=== PATIENT | female | born 1955 | race Caucasian/White ===

== ENCOUNTER 2023-02-23 12:49 | Emergency (ER) | payer BC, OTHER ==
--- OUTSIDE RECORDS SUMMARY | 2023-02-23 12:52 | XMS REPORT | Continuity of Care Document ---
:1955 Author Organization [facility] Address [address] [address] Care Team Providers Name Role Phone Adamaris Nance Attending Clinician Edward Cuevas MD Attending Clinician Unknown, Attending Attending Clinician Unavailable Doctor Unassigned, [place] Attending Clinician Unavailable Payers Payer Name Policy Type Policy Number Effective Date Expiration Date S ource Problems Condition Condition Condition Status Onset Resolution Last Treating Co mments Source Name Details Category Date Date Treatment Clinician Date No known No known Disease Unive rs active active ity of problems problems [facility] Allergies, Adverse Reactions, Alerts This patient has no known allergies or adverse reactions. Social History Social Habit Start Date Stop Date Quantity Comments Source Alcohol intake [facility] Smoking Status Start Date Stop Date Source Never smoker [facility] Medications Ordered Filled Start Stop Current Ordering Indication Dosage Frequency Signature Comments Components Source Medication Medication Date Date Medication? Clinician (SIG) Name Name acetaminoph Yes [id number] 07/16 Univers en-codeine 9-14 tab Every ity of 300-30 mg 00:00: 4hrs as [place] tablet 00 needed for Medical pain or Branch cough requiring narcotic acetaminoph Yes [id number] 07/16 Univers en-codeine 9-14 tab Every ity of 300-30 mg 00:00: 4hrs as [place] tablet 00 needed for Medical pain or Branch cough requiring narcotic azithromyci Yes [id number] 250mg Take 1 Univers n 250 mg 4-13 tablet by ity of tablet 00:00: mouth [place] 00 SEE-INSTRU Medical CTIONS. Branch Take 500 mg day 1, then 250 mg days 2 to 5. dextrometho 2018- Yes [id number] 1{tbl} Take 1 Univers rphan-guaif 4-13 tablet by ity of enesin 00:00: mouth 2 [place] 30-600 mg 00 (two) Medical per tablet times Branch daily. azithromyci 2019-0 Yes [id number] 250mg Take 1 Univers n 250 mg 4-13 tablet by ity of tablet 00:00: mouth [place] 00 SEE-INSTRU Medical CTIONS. Branch Take 500 mg day 1, then 250 mg days 2 to 5. dextrometho 2018- Yes [id number] 1{tbl} Take 1 Univers rphan-guaif 4-13 tablet by ity of enesin 00:00: mouth 2 [place] 30-600 mg 00 (two) Medical per tablet times Branch daily. azithromyci Yes [id number] 250mg Take 1 Univers n 250 mg 4-13 tablet by ity of tablet 00:00: mouth [place] 00 SEE-INSTRU Medical CTIONS. Branch Take 500 mg day 1, then 250 mg days 2 to 5. dextrometho 2018- Yes [id number] 1{tbl} Take 1 Univers rphan-guaif 4-13 tablet by ity of enesin 00:00: mouth 2 [place] 30-600 mg 00 (two) Medical per tablet times Branch daily. Vital Signs Vital Name Observation Time Observation Value Comments Source Systolic blood 2019-03-28 21:04:00 157 mm[Hg] [facility] Diastolic blood 2019-03-28 21:04:00 84 mm[Hg] [facility] Heart rate 2019-03-28 21:03:00 118 /min [facility] acute hospital Body temperature 2019-03-28 21:03:00 36.5 Reema [facility] Respiratory rate 2019-03-28 21:03:00 17 /min [facility] Body height 2019-03-28 21:03:00 154.9 cm [facility] hospital Body weight 2019-03-28 21:03:00 62.687 kg [facility] hospital BMI 2019-03-28 21:03:00 26.11 kg/m2 [facility] acute hospital Oxygen saturation in 2019-03-28 21:03:00 98 /min [facility] Arterial blood by [facility] Pulse oximetry Branch Procedures Procedure Date / Time Performing Clinician Source Performed NO SHOW OR MISSED 2019-03-28 20:56:29 Doctor Unassigned, [facility] [place] ity of [place] APPOINTMENT POLICY [facility] h ACKNOWLEDGEMENT Encounters Start End Encounter Admission Attending Care Care Encounter Source Date/Time Date/Time Type Type Clinicians Facility Department ID 2019-03-29 2019-03-29 Telephone Abel [facility] [id number] Univers 00:00:00 00:00:00 [facility] [id number] it y of Surgical [id number] [place] as Specialti [phone] Wi dical es 370 [facility] 2019-03-28 2019-03-28 Urgent Edward Cuevas [facility] [id number] [facility] [place] 15:57:36 17:28:26 Care Unknown, Attending [facility] [id number] ity of Surgical [id number] Hum[facility] as Specialti [phone] Wi dical es 370 [facility] 2019-03-28 2019-03-28 Orders Doctor [place] [id number] Univers 00:00:00 00:00:00 Only Unassigned, [place] [id number] ity of Burn[place] [facility] [id number] Humza as [phone] [place] [address] Branch Results This patient has no known results.
[2023-02-23] MEDS ORDERED: NA CHLORIDE 0.9% 1,000 ML ONE (13:38)
[2023-02-23] MEDS ORDERED: dexAMETHasone 10 MG/ML VIAL ONE (13:38)
[2023-02-23 14:10] LABS: Absolute Lymphocytes (CBC) 0.7 K/uL (0.7-4.9); Hematocrit 34.3 % (36.0-45.0); Lymphocytes % 10.7 % (15.3-44.8); MCV 88.1 fL (80-100); MPV 8.1 fL (7.6-11.3); Platelets 267 thou/uL (152-406)
[2023-02-23 14:26] LABS: Potassium 3.8 mEq/L (3.5-5.1)
[2023-02-23 15:01] LABS: Blood Morphology Comment NOT SEEN (NOT SEEN); Platelet Estimate ADEQ
--- NOTE | 2023-02-23 15:29 | RAD REPORT ---
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 Multiplanar reformats were generated and reviewed. All CT scans are performed using dose optimization technique as appropriate and may include automated exposure control or mA/KV adjustment according to patient size. FINDINGS: Asymmetric enlargement of the right faucial tonsil. No intra or extra tonsillar abnormal f luid collections. No appreciable adjacent fat stranding although streak artifact resulting from denta l hardware limits evaluation. Fossa Rosenmller are normal. Parapharyngeal fat triangles are symmetric. Tongue base structures are normal. Epiglottis and aryepiglottic folds are normal. Piriform sinuses are well aerated. The vocal cords are normal in appearance. Prominent discrete right cervical lymph nodes, the largest at level 2A measuring 1.5 cm in short axis . Salivary glands are normal in appearance. Upper lung rowley are clear. Included intracranial contents are unremarkable. IMPRESSION: Asymmetric enlargement of the right faucial tonsil without appreciable fluid collections or fat stranding. Findings may be reactive or related to asymmetric tonsillitis. Streak artifact res ulting from dental hardware at that level limits evaluation. Prominent right cervical lymph nodes, likely reactive.
--- NOTE | 2023-02-23 15:40 | EDPHYS ---
Physician Documentation [facility] Name: Jose Luis Bull Age: 67 yrs Sex: Female : 1955 Arrival Date: 02/23/2023 Time: 12:49 Bed 18 Private MD: ED Physician Lincoln Briones HPI: 02/23 14:14 This 67 yrs old Female presents to ER via Ambulatory with complaints of Abcess tonsil. kb 14:14 The patient presents with sore throat. The patient describes throat pain as constant. kb Onset: The symptoms/episode began/occurred 1 week(s) ago. Severity of symptoms: At their worst the symptoms were moderate, in the emergency department the symptoms are unchanged. Modifying factors: The symptoms are alleviated by nothing, the symptoms are aggravated by swallowing. Associated signs and symptoms: Pertinent positives: Sore throat. The patient has not experienced similar symptoms in the past. The patient has been recently seen by a physician:. Pt reports sore throat for a week. 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 States swelling is worse. Historical: - Allergies: 13:05 No Known Allergies; hb - Home Meds: 13:05 None [Active]; hb - PMHx: 13:05 None; hb - PSHx: 13:05 None; hb - Immunization history:: Adult Immunizations up to date. - Social history:: Smoking status: Patient denies any tobacco usage or history of. ROS: 14:13 Constitutional: Negative for fever, chills, and weight loss. kb 14:13 ENT: Positive for sore throat. 14:13 All other systems are negative. Exam: 14:13 Constitutional: This is a well developed, well nourished patient who is awake, alert, kb and in no acute distress. Head/Face: Normocephalic, atraumatic. Cardiovascular: Regular rate and rhythm with a normal S1 and S2. No gallops, murmurs, or rubs. No pulse deficits. Respiratory: Respirations even and unlabored. No increased work of breathing. Talking in full sentences Skin: Warm, dry with normal turgor. Normal color. MS/ Extremity: Pulses equal, no cyanosis. Neurovascular intact. Full, normal range of motion. Neuro: Awake and alert, GCS 15, oriented to person, place, time, and situation. Moves all extremities. Normal gait. 14:13 ENT: Posterior pharynx: Airway: normal, no evidence of obstruction, Tonsils: enlarged on the right, with erythema, Uvula: normal, midline, swelling, that is moderate, erythema, that is moderate. Vital Signs: 13:02 BP 186 / 79; Pulse 106; Resp 16; Temp 98.1; Pulse Ox 97% on R/A; Weight 63.5 kg; Height hb 5 ft. 1 in. ; Pain 0/10; 14:00 BP 139 / 85; Pulse 92; Resp 18; Pulse Ox 99% on R/A; eh3 15:05 BP 153 / 75; Pulse 98; Resp 16; Temp 97.9; Pulse Ox 99% ; Pain 0/10; sm8 13:02 Body Mass Index 26.45 (63.50 kg, 154.94 cm) hb 13:02 Pain Scale: Adult hb 15:05 Pain Scale: Adult sm8 MDM: 13:02 Patient medically screened. kb 14:14 Data reviewed: vital signs, nurses notes. kb 14:16 Differential diagnosis: strep, mono, INSPECTION SUPERVISOR. Test considered but Not performed: Labs: strep considered, but pt had negative strep test on and on amoxicillin. Result would not change plan of care. 15:32 Counseling: I had a detailed discussion with the patient and/or guardian regarding: the kb historical points, exam findings, and any diagnostic results supporting the discharge/admit diagnosis, lab results, radiology results, the need for outpatient follow up, an ENT specialist, to return to the emergency department if symptoms worsen or persist or if there are any questions or concerns that arise at home. 02/23 13:08 Order name: CBC with Diff; Complete Time: 15:04 kb 02/23 13:08 Order name: Basic Metabolic Panel; Complete Time: 14:27 kb 02/23 13:08 Order name: [place] Screen Profile; Complete Time: 14:27 kb 02/23 14:15 Order name: Manual Differential; Complete Time: 15:04 EDMS 02/23 13:08 Order name: CT Soft Tissue Neck W/contr; Complete Time: 15:31 kb 02/23 13:08 Order name: IV Start; Complete Time: 13:38 kb Administered Medications: 13:30 Drug: NS 0.9% IV 1000 ml Route: IV; Rate: 1000 ml; Site: left antecubital; 3 14:30 Follow up: IV Status: Completed infusion; IV Intake: 1000ml 3 13:30 Drug: Decadron - Dexamethasone IVP 10 mg Route: IVP; Site: left antecubital; 3 14:00 Follow up: Response: No adverse reaction 3 Disposition: 16:51 Co-signature as Attending Physician, Lincoln Briones MD I agree with the assessment and kdr plan of care. Disposition Summary: 02/23/23 15:39 Discharge Ordered Location: Home kb Condition: Stable kb Diagnosis - Acute tonsillitis, unspecified kb Followup: kb - With: - When: 2 - 3 days - Reason: Recheck today's complaints Followup: kb - With: Emergency Department - When: As needed - Reason: Worsening of condition Followup: kb - With: Private Physician - When: 2 - 3 days - Reason: Recheck today's complaints, Continuance of care, Re-evaluation by your physician Discharge Instructions: - Discharge Summary Sheet kb - Tonsillitis, [id number] kb Forms: - Medication Reconciliation Form kb - Thank You Letter kb - Antibiotic Education kb - Prescription Opioid Use kb - Patient Portal Instructions kb - Leadership Thank You Letter kb Prescriptions: - Augmentin 875-125 mg Oral Tablet - take 1 tablet by ORAL route every 12 hours for 10 days; 20 tablet; Refills: 0, kb Product Selection Permitted Signatures: Dispatcher [employer] Diandra Joy, GEOMETRY TUTOR-C GEOMETRY TUTOR-Lincoln Baker MD MD kdr Baxter, Heather, RN RN Marycarmen Florence RN RN 3
--- NOTE | 2023-02-23 15:40 | ER ---
Nurse's Notes [facility] Name: Jose Luis Bull Age: 67 yrs Sex: Female : 1955 Arrival Date: 02/23/2023 Time: 12:49 Bed 18 Private MD: Diagnosis: Acute tonsillitis, unspecified Presentation: 02/23 13:02 Chief complaint: Seen at urgent care for sore throat, on Amoxicillin day 3 for hb peritonsillar abscess, c/o worsening swelling and difficulty swallowing today. Coronavirus screen: At this time, the client does not indicate any symptoms associated with coronavirus-19. Ebola Screen: No symptoms or risks identified at this time. Initial Sepsis Screen: Does the patient meet any 2 criteria? HR > 90 bpm. No. Patient's initial sepsis screen is negative. Does the patient have a suspected source of infection? No. Patient's initial sepsis screen is negative. Risk Assessment: Do you want to hurt yourself or someone else? Patient reports no desire to harm self or others. Onset of symptoms was February 21, 2023. 13:02 Method Of Arrival: Ambulatory 13:02 Acuity: DARIELA 3 hb Triage Assessment: 13:05 General: Appears in no apparent distress. Behavior is calm, cooperative. Pain: Denies hb pain. EENT: Reports difficulty swallowing. Neuro: Level of Consciousness is awake, alert, obeys commands, Oriented to person, place, time, situation. Cardiovascular: Patient's skin is warm and dry. Respiratory: Respiratory effort is even, unlabored, Respiratory pattern is regular, symmetrical. GI: No signs and/or symptoms were reported involving the gastrointestinal system. : No signs and/or symptoms were reported regarding the genitourinary system. Derm: Skin is pink, warm \T\ dry. Musculoskeletal: No signs and/or symptoms reported regarding the musculoskeletal system. Historical: - Allergies: 13:05 No Known Allergies; hb - Home Meds: 13:05 None [Active]; hb - PMHx: 13:05 None; hb - PSHx: 13:05 None; hb - Immunization history:: Adult Immunizations up to date. - Social history:: Smoking status: Patient denies any tobacco usage or history of. Screenin:05 [facility] ED Fall Risk Assessment (Adult) Score/Fall Risk Level 0 - 2 = Low Risk hb Oriented to surroundings, Maintained a safe environment. Abuse screen: Denies threats or abuse. Denies injuries from another. Nutritional screening: No deficits noted. Tuberculosis screening: No symptoms or risk factors identified. Assessment: 13:05 General: Appears in no apparent distress. uncomfortable, Behavior is calm, cooperative, eh3 appropriate for age. Pain: Complains of pain in throat. Neuro: Level of Consciousness is awake, alert, obeys commands, Oriented to person, place, time, situation. Cardiovascular: Capillary refill < 3 seconds Patient's skin is warm and dry. Respiratory: Airway is patent Respiratory effort is even, unlabored, Respiratory pattern is regular, symmetrical. GI: Abdomen is round non-distended. Derm: Skin is pink, warm \T\ dry. Musculoskeletal: Circulation, motion, and sensation intact. 14:00 Reassessment: Patient appears in no apparent distress at this time. Patient and/or 3 family updated on plan of care and expected duration. Pain level reassessed. Patient is alert, oriented x 3, equal unlabored respirations, skin warm/dry/pink. 15:00 Reassessment: Patient appears in no apparent distress at this time. Patient and/or eh3 family updated on plan of care and expected duration. Pain level reassessed. Patient is alert, oriented x 3, equal unlabored respirations, skin warm/dry/pink. Vital Signs: 13:02 BP 186 / 79; Pulse 106; Resp 16; Temp 98.1; Pulse Ox 97% on R/A; Weight 63.5 kg; Height hb 5 ft. 1 in. ; Pain 0/10; 14:00 BP 139 / 85; Pulse 92; Resp 18; Pulse Ox 99% on R/A; eh3 15:05 BP 153 / 75; Pulse 98; Resp 16; Temp 97.9; Pulse Ox 99% ; Pain 0/10; sm8 13:02 Body Mass Index 26.45 (63.50 kg, 154.94 cm) hb 13:02 Pain Scale: Adult hb 15:05 Pain Scale: Adult 8 ED Course: 12:53 Patient arrived in ED. ts1 13:02 Di[facility]enson [facility]C [facility] kb 13:02 Lincoln Briones MD is Attending Physician. kb 13:05 Triage completed. hb 13:05 Marycarmen Florence, RN is Primary Nurse. 3 13:05 Arm band placed on. 13:05 Patient has correct armband on for positive identification. Bed in low position. 13:05 Provided Education on: Use of call dinh. Pulse ox on. NIBP on. eh3 14:10 Missed attempt(s): 20 gauge Bleeding controlled, band aid applied, catheter tip intact. sm8 14:10 Inserted saline lock: 20 gauge in left antecubital area, using aseptic technique. Blood sm8 collected. 14:41 CT Soft Tissue Neck W/contr In Process Unspecified. EDCA 15:39 Inez Hopson MD is Referral Physician. kb 15:51 No provider procedures requiring assistance completed. Patient did not have IV access eh3 during this emergency room visit. Administered Medications: 13:30 Drug: NS 0.9% IV 1000 ml Route: IV; Rate: 1000 ml; Site: left antecubital; eh3 14:30 Follow up: IV Status: Completed infusion; IV Intake: 1000ml 3 13:30 Drug: Decadron - Dexamethasone IVP 10 mg Route: IVP; Site: left antecubital; eh3 14:00 Follow up: Response: No adverse reaction eh3 Medication: 15:51 VIS not applicable for this client. eh3 Intake: 14:30 IV: 1000ml; Total: 1000ml. 3 Outcome: 15:39 Discharge ordered by MD. kb 16:00 Discharged to home ambulatory, with family. eh3 16:00 Condition: stable 16:00 Discharge instructions given to patient, Instructed on discharge instructions, follow up and referral plans. medication usage, Demonstrated understanding of instructions, follow-up care, medications, Prescriptions given X 1. 16:00 Patient left the ED. eh3 Signatures: Dispatcher [employer] EDCA Diandra Henson, ESTIMATOR LUMBER-C ESTIMATOR LUMBER-Ckb Natalie Mejia RN RN Marycarmen Florence, WYATT SCHNEIDER 3 Brigette Junior PAS PAS ts1 Mills, Scarlett sm8 Corrections: (The following items were deleted from the chart) 14:10 14:10 Missed attempt(s): 18 gauge in left Bleeding controlled, band aid applied, sm8 catheter tip intact. sm8
[2023-02-23 16:23] VITALS: O2SAT 99
[2023-02-23 16:25] VITALS: BP 153/75; TEMP 97.9
== END 2023-02-23 16:00 | disposition home or self-care (01) ==
LOC: ER 12:49
DX: J03.90 Acute tonsillitis, unspecified (principal)
CPT/HCPCS: 96361; 85025; 80048; 36415; 86308; 70491; 96374; 99284; Q9967; J1100; J7030

== ENCOUNTER 2023-06-20 23:03 | Emergency (ER) | payer OTHER ==
--- OUTSIDE RECORDS SUMMARY | 2023-06-20 23:07 | XMS REPORT | Continuity of Care Document ---
Author Name Unknown Address [address] [place] [address] thconnect Address 1200 [facility] 1 495 [place] [address] Care Team Providers [employer] Name Role Phone Adamaris Nance Attending Clinician [phone] Edward Cuevas MD Attending Clinician [phone] Unknown, Attending Attending Clinician Unavailab le Doctor Unassigned, [place] Attending Clinician U navailable Payers Payer Name Policy Type Policy Number Effective Date Expirati on Date Source Problems Condition Name Condition Details Condition Category Status Onset Date Resolution Date Last Treatment Date Treating Clinician Comments Source No known active problems No known active problems Disease [facility] Social History Social Habit Start Date Stop Date Quantity Comments Source Alcohol intake [facility] Sex Assigned At [facility] Smoking Status Start Date Stop Date Source Never smoker [facility] Medications Ordered Medication Name Filled Medication Name Start Date Stop Date Current Medication? Ordering Clinician Indication Dosage Frequency Signature (SIG) Comments Components Source acetaminoph en-codeine 300-30 mg tablet 03-28 00:00: 00 Yes [id number] 1/2 - 1 tab Every 4hrs as needed for pain or cough requiring narcotic [facility] acetaminoph en-codeine 300-30 mg tablet 03-28 00:00: 00 Yes [id number] 1/2 - 1 tab Every 4hrs as needed for pain or cough requiring narcotic [facility] azithromyci n 250 mg tablet 10-25 00:00: 00 Yes [id number] 250mg Take 1 tablet by mouth SEE-INSTRU CTIONS. Take 500 mg day 1, then 250 mg days 2 to 5. [facility] dextrometho rphan-guaif enesin 30-600 mg per tablet 10-25 00:00: 00 Yes [id number] 1{tbl} Take 1 tablet by mouth 2 (two) times daily. [facility] azithromyci n 250 mg tablet 10-25 00:00: 00 Yes [id number] 250mg Take 1 tablet by mouth SEE-INSTRU CTIONS. Take 500 mg day 1, then 250 mg days 2 to 5. [facility] dextrometho rphan-guaif enesin 30-600 mg per tablet 10-25 00:00: 00 Yes [id number] 1{tbl} Take 1 tablet by mouth 2 (two) times daily. [facility] azithromyci n 250 mg tablet 10-25 00:00: 00 Yes [id number] 250mg Take 1 tablet by mouth SEE-INSTRU CTIONS. Take 500 mg day 1, then 250 mg days 2 to 5. [facility] dextrometho rphan-guaif enesin 30-600 mg per tablet 10-25 00:00: 00 Yes [id number] 1{tbl} Take 1 tablet by mouth 2 (two) times daily. [facility] Vital Signs Vital Name Observation Time Observation Value Comments S ource Systolic blood pressure 2019-03-28 21:04:00 157 mm[Hg] [facility] Diastolic blood pressure 2019-03-28 21:04:00 84 mm[Hg] [facility] Heart rate 2019-03-28 21:03:00 118 /min [facility] Body temperature 2019-03-28 21:03:00 36.5 Reema [facility] Respiratory rate 2019-03-28 21:03:00 17 /min [facility] Body height 2019-03-28 21:03:00 154.9 cm [facility] Body weight 2019-03-28 21:03:00 62.687 kg [facility] BMI 2019-03-28 21:03:00 26.11 kg/m2 [facility] Oxygen saturation in Arterial blood by Pulse oximetry 2019-03-28 21:03:00 98 /min [facility] Branch Procedures Procedure Date / Time Performed Performing Clinician Source NO SHOW OR MISSED APPOINTMENT POLICY ACKNOWLEDGEMENT 2019-03-28 20:56:29 Doctor Unassigned, [place] [facility] Encounters Start Date/Time End Date/Time Encounter Type Admission Type Attending Clinicians Care Facility Care Department Encounter ID Source 2019-03-29 00:00:00 2019-03-29 00:00:00 Telephone Adamaris Roman [facility] Specialclarissa [facility] [id number] [facility] 2019-03-28 15:57:36 2019-03-28 17:28:26 Urgent Care Edward Cuevas, Attending [facility] Specialclar[facility] [id number] [facility] 2019-03-28 00:00:00 2019-03-28 00:00:00 Orders Only Doctor Unassigned, [place] [facility] [id number] [facility]
[2023-06-21] MEDS ORDERED: NA CHLORIDE 0.9% 1,000 ML ONE (00:18)
[2023-06-21] MEDS ORDERED: MORPHINE 2 MG/ML SYR ONE (00:18)
[2023-06-21] MEDS ORDERED: ONDANSETRON 4 MG/2 ML VIAL ONE (00:21)
[2023-06-21 00:51] LABS: Absolute Lymphocytes (CBC) 1.1 K/uL (0.7-4.9); Hematocrit 34.3 % (36.0-45.0); Lymphocytes % 17.6 % (15.3-44.8); MCV 86.4 fL (80-100); Platelets 123 thou/uL (152-406); RBC Red Blood Cell Count 3.97 M/uL (3.86-4.86)
[2023-06-21 01:09] LABS: Specific Gravity 1.021 (1.005-1.030); Urine Bacteria None Seen /HPF (<20); Urine Bilirubin NEGATIVE (Negative); Urine Blood Trace (Negative); Urine Clarity Turbid (Clear); Urine Color Yellow (Yellow); Urine Glucose NEGATIVE (Negative); Urine Mucus Slight /HPF (None Seen); Urine Protein NEGATIVE (Negative); Urine RBC None Seen /HPF (None Seen); Urine Urobilinogen Normal (Normal)
[2023-06-21 01:40] LABS: Albumin 3.4 g/dL (3.4-5.0); Bilirubin Total 0.3 mg/dL (0.2-1.0); Potassium 2.9 mEq/L (3.5-5.1); Protein, Total 6.8 g/dL (6.4-8.2)
[2023-06-21 01:49] LABS: Blood Morphology Comment NOT SEEN (NOT SEEN); Platelet Estimate ADEQ
--- NOTE | 2023-06-21 03:17 | EDPHYS ---
Physician Documentation [facility] [place] Name: Jose Luis Bull Age: 67 yrs Sex: Female : 1955 Arrival Date: 06/20/2023 Time: 23:03 Bed 15 Private MD: Ap Meyers HPI: 06/20 23:20 This 67 yrs old Female presents to ER via Ambulatory with complaints of Abdominal Pain, cp patient has not had a bm since 06-10 . patient had chemo that day. 23:20 The patient presents with abdominal pain that is diffuse, constipation. Onset: The cp symptoms/episode began/occurred 1 week(s) ago. The symptoms do not radiate. Associated signs and symptoms: Pertinent positives: chest pain, diarrhea, Pertinent negatives: fever, nausea, vomiting. 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 - Social history:: Smoking status: Patient denies any tobacco usage or history of. ROS: 23:25 Constitutional: Negative for body aches, chills, fever, poor PO intake, cp 23:25 Cardiovascular: Negative for chest pain, edema, palpitations, cp 23:25 Respiratory: Negative for cough, shortness of breath, wheezing, 23:25 Abdomen/GI: Positive for abdominal pain, constipation, Negative for vomiting, diarrhea, anorexia, 23:25 Eyes: Negative for injury, pain, redness, and discharge, cp 23:25 ENT: Negative for drainage from ear(s), ear pain, sore throat, difficulty swallowing, cp difficulty handling secretions, 23:25 Back: Negative for radiated pain, 23:25 Neuro: Negative for altered mental status, dizziness, headache, weakness, 23:25 All other systems are negative, Exam: 23:30 Constitutional: The patient appears in no acute distress, alert, awake, cp non-diaphoretic, non-toxic, well developed, well nourished, uncomfortable, 23:30 Head/Face: Normocephalic, atraumatic. cp 23:30 Eyes: Periorbital structures: appear normal, Conjunctiva: normal, no exudate, no injection, Sclera: no appreciated abnormality, Lids and lashes: appear normal, bilaterally, 23:30 ENT: External ear(s): are unremarkable, Nose: is normal, Mouth: Lips: moist, Oral mucosa: pink and intact, moist, Posterior pharynx: Airway: no evidence of obstruction, patent, 23:30 Chest/axilla: Inspection: normal, 23:30 Cardiovascular: Rate: tachycardic, Rhythm: regular, Edema: is not appreciated, JVD: is not appreciated, 23:30 Respiratory: the patient does not display signs of respiratory distress, Respirations: normal, no use of accessory muscles, no retractions, labored breathing, is not present, Breath sounds: are clear throughout, no decreased breath sounds, no stridor, no wheezing, 23:30 Abdomen/GI: Inspection: distension, that is mild, Bowel sounds: active, all quadrants, Palpation: soft, in all quadrants, mild abdominal tenderness, in all quadrants, rebound tenderness, is not appreciated, involuntary guarding, is not appreciated, 23:30 Back: pain, is absent, 23:30 Neuro: Orientation: to person, place \T\ time. Mentation: is normal, Cerebellar function: is grossly normal, Motor: moves all fours, strength is normal, Sensation: is normal, 06/21 03:26 ECG was reviewed by the Attending Physician. cp Vital Signs: 06/20 23:13 BP 170 / 84; Pulse 120; Resp 18 S; Temp 97.3(TE); Pulse Ox 100% on R/A; Weight 57.15 kg as6 (R); Height 5 ft. 1 in. (R); Pain 10/10; 23:34 BP 160 / 76; Pulse 96; Resp 18; Pulse Ox 100% on R/A; km8 06/21 00:00 BP 136 / 63; Pulse 89; Resp 16; Pulse Ox 100% on R/A; 8 00:30 BP 147 / 70; Pulse 80; Resp 16; Pulse Ox 100% on R/A; km8 01:00 BP 156 / 69; Pulse 88; Resp 16; Pulse Ox 100% on R/A; km8 01:30 BP 140 / 76; Pulse 84; Resp 16; Pulse Ox 100% on R/A; km8 02:00 BP 139 / 65; Pulse 86; Resp 16; Pulse Ox 95% on R/A; km8 03:00 BP 143 / 72; Pulse 84; Resp 16; Pulse Ox 100% on R/A; km8 06/20 23:13 Body Mass Index 23.81 (57.15 kg, 154.94 cm) as6 06/20 23:13 Pain Scale: Adult as6 [place]day Coma Score: 06/20 23:31 Eye Response: spontaneous(4). Motor Response: obeys commands(6). Verbal Response: km8 oriented(5). Total: 15. MDM: 23:17 Patient medically screened. casey 06/21 03:15 Data reviewed: vital signs, nurses notes, lab test result(s), radiologic studies, CT cp scan. 03:15 Differential diagnosis: non-specific abd pain, urinary tract infection, bowel cp obstruction. I considered the following discharge prescriptions or medication management in the emergency department Medications were administered in the Emergency Department. See MAR. Counseling: I had a detailed discussion with the patient and/or guardian regarding the historical points, exam findings, and any diagnostic results supporting the discharge/admit diagnosis, lab results, radiology results, to return to the emergency department if symptoms worsen or persist or if there are any questions or concerns that arise at home. Response to treatment: the patient's symptoms have mildly improved after treatment, and as a result, I will discharge patient. Special discussion: Based on the patient's Hx, exam, and Dx evaluation, there is no indication for emergent surgery or inpatient Tx. It is understood by the patient/guardian that if the Sx's persist or worsen they need to return immediately for re-evaluation. 06/21 00:00 Order name: CBC with Diff; Complete Time: 02:09 cp 06/21 02:10 Interpretation: Normal except: HGB 11.8; HCT 34.3; PLT 123. cp 06/21 00:00 Order name: CMP; Complete Time: 02:09 cp 06/21 02:15 Interpretation: Normal except: NA 134; K 2.9; GLUC 113; BUN 24; GFR 67; ALT 101; A/G cp 1.0. 06/21 00:00 Order name: Lipase; Complete Time: 02:09 cp 06/21 00:00 Order name: Urinalysis w/ reflexes; Complete Time: 02:09 cp 06/21 02:21 Interpretation: Normal except: UCLA Turbid; UKET TRACE; UBLD Trace; UESTR 25. cp 06/21 01:01 Order name: Manual Differential; Complete Time: 02:09 EDMS 06/21 02:24 Interpretation: Normal except: SEGS 23; BANDS [F] 46. cp 06/21 00:00 Order name: CT Abd/Pelvis - IV Contrast Only cp 06/21 00:00 Order name: IV Saline Lock; Complete Time: 00:21 cp 06/21 00:00 Order name: Labs collected and sent; Complete Time: 00:21 cp 06/21 03:07 Order name: EKG - Nurse/Tech; Complete Time: 03:33 cp EC:26 Rate is 82 beats/min. Rhythm is regular. TN interval is normal. QRS interval is normal. cp QT interval is normal. Interpreted by me. Reviewed by me. Administered Medications: 00:21 Drug: NS 0.9% IV 1000 ml IV at 1000 calculated rate Per protocol; 500 cc bolus then 125 km8 mL/hr Route: IV; Rate: 1000 calculated rate; Site: right antecubital; 02:55 Follow up: IV Status: Completed infusion; IV Intake: 1000ml 00:21 Drug: Ondansetron IVP 4 mg IVP once; over 2 minutes Route: IVP; Site: right antecubital;8 01:01 Follow up: Response: No adverse reaction 00:21 Drug: morphine IVP or IV 2 mg IVP once over 4 mins Route: IVP; Infused Over: 4 mins; 8 Site: right antecubital; 01:01 Follow up: Response: No adverse reaction; Pain is decreased 03:33 Drug: Potassium PO Effervescent Tablet 50 mEq PO once; dissolve in 4 ounces of water or km8 juice Route: PO; 03:33 Follow up: Response: Medication administered at discharge. 03:33 Drug: Potassium PO Effervescent Tablet 25 mEq PO once; dissolve in 4 ounces of water or km8 juice Route: PO; 03:33 Follow up: Response: Medication administered at discharge. 03:33 Drug: Lactulose PO 30 grams 45 ml PO once Volume: 45 ml; Route: PO; 8 03:33 Follow up: Response: Medication administered at discharge. 03:33 Drug: Lactulose PO 30 grams 45 ml PO once Volume: 45 ml; Route: PO; km8 03:34 Follow up: Response: Medication administered at discharge. 03:33 Drug: Dulcolax TN Suppository 10 mg TN once Route: TN; 03:34 Follow up: Response: Medication administered at discharge. Disposition Summary: 06/21/23 03:17 Discharge Ordered Notes: Location: Home cp Problem: new cp Symptoms: have improved cp Condition: Stable cp Diagnosis - Constipation, unspecified cp - Hypokalemia cp Followup: cp - With: Private Physician - When: 2 - 3 days - Reason: Recheck today's complaints Discharge Instructions: - Discharge Summary Sheet cp - Constipation, Adult cp - Potassium Content of Foods cp - Hypokalemia cp Forms: - Medication Reconciliation Form cp - Thank You Letter cp - Antibiotic Education cp - Prescription Opioid Use cp - Patient Portal Instructions cp - Leadership Thank You Letter cp Prescriptions: - Miralax 17 gram/dose Oral powder - take 17 gram ORAL route daily as needed for constipation; 1 unit; Refills: 0, cp Product Selection Permitted Signatures: Dispatcher [employer] EDMS Ap Young MD MD cha Page, Corey, PA PA cp Aurelio Britton RN RN as6 Rosario Wyatt RN RN km8 Corrections: (The following items were deleted from the chart) :06/20 23:30 Constitutional: The patient appears in no acute distress, alert, awake, cp non-diaphoretic, non-toxic, well developed, well nourished, obese, uncomfortable, cp 06/21 03:06/20 23:30 Head/Face: Normocephalic, atraumatic. cp cp 06/21 03:06/20 23:30 Eyes: Periorbital structures: appear normal, Conjunctiva: normal, no cp exudate, no injection, Sclera: no appreciated abnormality, Lids and lashes: appear normal, bilaterally, cp 06/21 03:06/20 23:30 ENT: External ear(s): are unremarkable, Nose: is normal, Mouth: Lips: cp moist, Oral mucosa: pink and intact, moist, Posterior pharynx: is normal, airway is patent, no erythema, no exudate, cp 06/21 03:06/20 23:30 Neck: C-spine: vertebral tenderness, is not appreciated, crepitus, is not cp appreciated, cp 06/21 03:06/20 23:30 Chest/axilla: Inspection: normal, Palpation: crepitus, is not appreciated, cp tenderness, that is moderate, of the right lower rib area, cp 06/21 03:06/20 23:30 Cardiovascular: Rate: tachycardic, Rhythm: regular, Edema: is not cp appreciated, JVD: is not appreciated, cp 06/21 03:06/20 23:30 Respiratory: the patient does not display signs of respiratory distress, cp Respirations: normal, no use of accessory muscles, no retractions, labored breathing, is not present, Breath sounds: are clear throughout, no decreased breath sounds, no stridor, no wheezing, cp 06/21 03:06/20 23:30 Abdomen/GI: Inspection: obese Bowel sounds: active, all quadrants, cp Palpation: soft, in all quadrants, moderate abdominal tenderness, in the right upper quadrant, rebound tenderness, is not appreciated, voluntary guarding, is elicited in the right upper quadrant, cp
--- NOTE | 2023-06-21 03:17 | ER ---
Nurse's Notes [facility] Name: Jose Luis Bull Age: 67 yrs Sex: Female : 1955 Arrival Date: 06/20/2023 Time: 23:03 Bed 15 Private MD: Diagnosis: Constipation, unspecified;Hypokalemia Presentation: 06/20 23:14 Chief complaint: Patient states: hasn't had a BM in over a week and is having bad as6 abdominal pain. pt has been taking Miralax and did an enema with no relief. Coronavirus screen: At this time, the client does not indicate any symptoms associated with coronavirus-19. Ebola Screen: No symptoms or risks identified at this time. Initial Sepsis Screen: Does the patient meet any 2 criteria? No. Patient's initial sepsis screen is negative. Does the patient have a suspected source of infection? No. Patient's initial sepsis screen is negative. Risk Assessment: Do you want to hurt yourself or someone else? Patient reports no desire to harm self or others. Onset of symptoms was June 10, 2023. 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 - Social history:: Smoking status: Patient denies any tobacco usage or history of. Screenin:31 [facility] ED Fall Risk Assessment (Adult) History of falling in the last 3 months, km8 including since admission No falls in past 3 months (0 pts) Confusion or Disorientation No (0 pts) Intoxicated or Sedated No (0 pts) Impaired Gait No (0 pts) Mobility Assist Device Used No (0 pt) Altered Elimination No (0 pt) Score/Fall Risk Level 0 - 2 = Low Risk Oriented to surroundings, Maintained a safe environment, Educated pt \T\ family on fall prevention, incl call for assistance when getting out of bed, Assessed \T\ reinforced patient's understanding of fall precautions. Abuse screen: Denies threats or abuse. Denies injuries from another. Nutritional screening: No deficits noted. Tuberculosis screening: No symptoms or risk factors identified. Assessment: 23:31 General: Appears in no apparent distress. uncomfortable, Behavior is calm, cooperative, km8 appropriate for age. Pain: Complains of pain in abdomen Pain currently is 10 out of 10 on a pain scale. Quality of pain is described as pressure. Neuro: Jiang Agitation-Sedation Scale (RASS): 0 - Alert and Calm Level of Consciousness is awake, alert, obeys commands, Oriented to person, place, time, situation. Cardiovascular: Denies chest pain, shortness of breath, Capillary refill < 3 seconds Patient's skin is warm and dry. Respiratory: Airway is patent Respiratory effort is even, unlabored, Respiratory pattern is regular, symmetrical. GI: Abdomen is non-distended, Bowel sounds present X 4 quads. Abdomen is tender to palpation X 4 quads. Reports lower abdominal pain, upper abdominal pain, bloating, constipation, flatulence, Patient currently denies nausea, vomiting. : No signs and/or symptoms were reported regarding the genitourinary system. EENT: No signs and/or symptoms were reported regarding the EENT system. Derm: No signs and/or symptoms reported regarding the dermatologic system. Skin is intact, is healthy with good turgor, Skin is dry, Skin is pink, warm \T\ dry. normal, Skin temperature is warm. Musculoskeletal: No signs and/or symptoms reported regarding the musculoskeletal system. Range of motion: intact in all extremities. 06/21 01:00 Reassessment: Patient appears in no apparent distress at this time. Patient and/or km8 family updated on plan of care and expected duration. Pain level reassessed. Patient is alert, oriented x 3, equal unlabored respirations, skin warm/dry/pink. Patient states symptoms have improved. 02:01 Reassessment: Patient appears in no apparent distress at this time. No changes from km8 previously documented assessment. Patient and/or family updated on plan of care and expected duration. Pain level reassessed. Patient is alert, oriented x 3, equal unlabored respirations, skin warm/dry/pink. 03:01 Reassessment: Patient appears in no apparent distress at this time. No changes from km8 previously documented assessment. Patient and/or family updated on plan of care and expected duration. Pain level reassessed. Patient is alert, oriented x 3, equal unlabored respirations, skin warm/dry/pink. Vital Signs: 06/20 23:13 BP 170 / 84; Pulse 120; Resp 18 S; Temp 97.3(TE); Pulse Ox 100% on R/A; Weight 57.15 kg as6 (R); Height 5 ft. 1 in. (R); Pain 10/10; 23:34 BP 160 / 76; Pulse 96; Resp 18; Pulse Ox 100% on R/A; km8 06/21 00:00 BP 136 / 63; Pulse 89; Resp 16; Pulse Ox 100% on R/A; km8 00:30 BP 147 / 70; Pulse 80; Resp 16; Pulse Ox 100% on R/A; km8 01:00 BP 156 / 69; Pulse 88; Resp 16; Pulse Ox 100% on R/A; km8 01:30 BP 140 / 76; Pulse 84; Resp 16; Pulse Ox 100% on R/A; km8 02:00 BP 139 / 65; Pulse 86; Resp 16; Pulse Ox 95% on R/A; km8 03:00 BP 143 / 72; Pulse 84; Resp 16; Pulse Ox 100% on R/A; km8 06/20 23:13 Body Mass Index 23.81 (57.15 kg, 154.94 cm) as6 06/20 23:13 Pain Scale: Adult as6 [place] Coma Score: 06/20 23:31 Eye Response: spontaneous(4). Motor Response: obeys commands(6). Verbal Response: km8 oriented(5). Total: 15. ED Course: 23:08 Patient arrived in ED. gm2 23:14 Arm band placed on. as6 23:15 Ap Fields PA is PHCP. cp 23:15 Ap Young MD is Attending Physician. cp 23:15 Triage completed. as6 23:20 Rosario Wyatt, WYATT is Primary Nurse. km8 23:31 Patient has correct armband on for positive identification. Placed in gown. Bed in low km8 position. Call light in reach. Side rails up X 1. Pulse ox on. NIBP on. Door closed. Noise minimized. Lights dimmed. 23:31 No provider procedures requiring assistance completed. Patient maintains SpO2 km8 saturation greater than 95% on room air. 06/21 00:21 Inserted saline lock: 20 gauge in right antecubital area, using aseptic technique. km8 Blood collected. 00:22 CBC with Diff Sent. 00:22 CMP Sent. 8 00:22 Lipase Sent. 8 00:22 Urinalysis w/ reflexes Sent. km8 02:36 CT Abd/Pelvis - IV Contrast Only In Process Unspecified. EDMS 03:35 Provided Education on: d/c teaching. 8 03:35 IV discontinued, intact, bleeding controlled, No redness/swelling at site. Pressure 8 dressing applied. Administered Medications: 00:21 Drug: NS 0.9% IV 1000 ml IV at 1000 calculated rate Per protocol; 500 cc bolus then 125 km8 mL/hr Route: IV; Rate: 1000 calculated rate; Site: right antecubital; 02:55 Follow up: IV Status: Completed infusion; IV Intake: 1000ml 00:21 Drug: Ondansetron IVP 4 mg IVP once; over 2 minutes Route: IVP; Site: right antecubital;km8 01:01 Follow up: Response: No adverse reaction 00:21 Drug: morphine IVP or IV 2 mg IVP once over 4 mins Route: IVP; Infused Over: 4 mins; km8 Site: right antecubital; 01:01 Follow up: Response: No adverse reaction; Pain is decreased 03:33 Drug: Potassium PO Effervescent Tablet 50 mEq PO once; dissolve in 4 ounces of water or km8 juice Route: PO; 03:33 Follow up: Response: Medication administered at discharge. 03:33 Drug: Potassium PO Effervescent Tablet 25 mEq PO once; dissolve in 4 ounces of water or km8 juice Route: PO; 03:33 Follow up: Response: Medication administered at discharge. 03:33 Drug: Lactulose PO 30 grams 45 ml PO once Volume: 45 ml; Route: PO; km8 03:33 Follow up: Response: Medication administered at discharge. 03:33 Drug: Lactulose PO 30 grams 45 ml PO once Volume: 45 ml; Route: PO; km8 03:34 Follow up: Response: Medication administered at discharge. 03:33 Drug: Dulcolax NJ Suppository 10 mg NJ once Route: NJ; km 03:34 Follow up: Response: Medication administered at discharge. Medication: 06/20 23:31 VIS not applicable for this client. km8 Intake: 06/21 02:55 IV: 1000ml; Total: 1000ml. km8 Outcome: 03:17 Discharge ordered by . mariano 03:35 Discharged to home ambulatory, with family, km8 03:35 Condition: good 03:35 Discharge instructions given to patient, family, Instructed on discharge instructions, follow up and referral plans. medication usage, Demonstrated understanding of instructions, follow-up care, medications, Prescriptions given X 1, 03:35 Patient left the ED. km8 Signatures: Dispatcher [employer] EDMS Ap Fields PA PA cp Slawson, Ashby, RN RN as6 Cass Gupta gm2 Rosario Wyatt RN RN km8
[2023-06-21] MEDS ORDERED: LACTULOSE 20 GM/30 ML UCUP ONE ×2 (03:28→03:38)
[2023-06-21] MEDS ORDERED: POTASSIUM 25 MEQ EFFERV TAB ONE (03:28)
[2023-06-21] MEDS ORDERED: BISACODYL 10 MG RECTAL SUPP ONE (03:38)
[2023-06-21 04:09] VITALS: TEMP 97.3
[2023-06-21 04:25] VITALS: BP 143/72; O2SAT 100
--- NOTE | 2023-06-21 22:46 | RAD REPORT ---
EXAM DESCRIPTION: CT - Abdomen Pelvis W Contrast - 06/21/2023 7:12 am CLINICAL HISTORY: The patient is 67 years old and is Female; Abd pain;Constipation IV ONLY Bed Name: 15 TECHNIQUE: Axial computed tomography images of the abdomen and pelvis with intravenous contrast. S agittal and coronal reformatted images were created and reviewed. This CT exam was performed using one or more of the following dose reduction techniques: automated exposure control, adjustment of t he mA and/or kV according to patient size, and/or use of iterative reconstruction technique. COMPARISON: No relevant prior studies available. FINDINGS: LUNG BASES: Unremarkable. No mass. No consolidation. MEDIASTINUM: Small hiatal hernia. ABDOMEN: LIVER: Unremarkable. No mass. GALLBLADDER AND BILE DUCTS: Unremarkable. No calcified stones. No ductal dilation. PANCREAS: Unremarkable. No mass. No ductal dilation. SPLEEN: Unremarkable. No splenomegaly. ADRENALS: Unremarkable. No mass. KIDNEYS AND URETERS: Simple renal cysts. No follow-up of these simple cysts is necessary. No hydronephrosis. STOMACH AND BOWEL: Fecalization contents of multiple loops of distal small bowel. Moderate stool demonstrated within the cecum and ascending colon. No evidence of small or large bowel obstruction. No abnormal mucosal thickening. PELVIS: APPENDIX: No findings to suggest acute appendicitis. BLADDER: Unremarkable. No mass. REPRODUCTIVE: Unremarkable as visualized. ABDOMEN and PELVIS: INTRAPERITONEAL SPACE: Unremarkable. No free air. No significant fluid collection. BONES/JOINTS: No acute fracture. No dislocation. SOFT TISSUES: Unremarkable. VASCULATURE: Moderate calcified atherosclerosis of the abdominal aorta without aneurysmal dilatatio n. LYMPH NODES: Unremarkable. No enlarged lymph nodes. IMPRESSION: Fecalization contents of multiple loops of distal small bowel. Nonspecific, but sugges ts decreased motility. Otherwise no acute findings in the abdomen or pelvis. Electronically signed by: Aaron Ward MD 06/21/2023 02:58 AM ADMINISTRATIVE LIAISON Due to temporary technical issues with the PACS/Fluency reporting system, reports are being signed by the in house radiologists without review as a courtesy to insure prompt reporting. The interpreting radiologist is fully responsible for the content of the report.
--- NOTE | 2023-06-25 14:00 | EKG ---
Test Date: 2023-06-21 Test Time: 03:20:31 Calender Supervisor: MEASUREMENT RESULTS: Intervals: Rate: 82 [place]: 132 QRSD: 74 QT: 362 QTc: 422 [place]: P: 64 [place]: 132 QRS: 32 T: 23 INTERPRETIVE STATEMENTS: Normal sinus rhythm Nonspecific ST and T wave abnormality Abnormal ECG No previous ECG available for comparison Electronically Signed On 06-25-23 13:44:28 GASKET FORMER by Chapin Santiago
== END 2023-06-21 03:35 | disposition home or self-care (01) ==
LOC: ER 23:03
DX: K59.00 Constipation, unspecified (principal); E87.6 Hypokalemia; C85.90 Non-Hodgkin lymphoma, unspecified, unspecified site
CPT/HCPCS: 96361; 93005; 85025; 81001; 36415; 83690; 80053; 74177; 96375; 96374; 99285; Q9967; J2270; J2405; J7030

== ENCOUNTER → 2023-09-27 | Emergency (ER) | payer OTHER ==
--- OUTSIDE RECORDS SUMMARY | 2023-09-27 10:29 | XMS REPORT | Continuity of Care Document ---
Author Name Unknown Address [address] [place] [address] [address] th[address] Address 1200 [facility] 1 495 [place] [address] Care Team Providers Care Software Engineering Project Manager Name Role Phone Adamaris Nance Attending Clinician [phone] Edward Cuevas MD Attending Clinician [phone] Unknown, Attending Attending Clinician Unavailab le Doctor Unassigned, [place] Attending Clinician U navailable Payers Payer Name Policy Type Policy Number Effective Date Expirati on Date Source Problems Condition Name Condition Details Condition Category Status Onset Date Resolution Date Last Treatment Date Treating Clinician Comments Source No known active problems No known active problems Disease [facility] Social History Social Habit Start Date Stop Date Quantity Comments Source Alcohol intake [facility] Sex Assigned At [facility] Smoking Status Start Date Stop Date Source Never smoker [facility] Medications Ordered Medication Name Filled Medication Name Start Date Stop Date Current Medication? Ordering Clinician Indication Dosage Frequency Signature (SIG) Comments Components Source acetaminoph en-codeine 300-30 mg tablet 03-28 00:00: 00 Yes [id number] 1/2 - 1 tab Every 4hrs as needed for pain or cough requiring narcotic [facility] acetaminoph en-codeine 300-30 mg tablet 03-28 00:00: 00 Yes [id number] 1/2 - 1 tab Every 4hrs as needed for pain or cough requiring narcotic [facility] azithromyci n 250 mg tablet 10-25 00:00: 00 Yes [id number] 250mg Take 1 tablet by mouth SEE-INSTRU CTIONS. Take 500 mg day 1, then 250 mg days 2 to 5. [facility] dextrometho rphan-guaif enesin 30-600 mg per tablet 10-25 00:00: 00 Yes [id number] 1{tbl} Take 1 tablet by mouth 2 (two) times daily. [facility] azithromyci n 250 mg tablet 10-25 00:00: 00 Yes [id number] 250mg Take 1 tablet by mouth SEE-INSTRU CTIONS. Take 500 mg day 1, then 250 mg days 2 to 5. [facility] dextrometho rphan-guaif enesin 30-600 mg per tablet 10-25 00:00: 00 Yes [id number] 1{tbl} Take 1 tablet by mouth 2 (two) times daily. [facility] azithromyci n 250 mg tablet 10-25 00:00: 00 Yes [id number] 250mg Take 1 tablet by mouth SEE-INSTRU CTIONS. Take 500 mg day 1, then 250 mg days 2 to 5. [facility] dextnikiatho rphan-guaif enesin 30-600 mg per tablet 10-25 00:00: 00 Yes [id number] 1{tbl} Take 1 tablet by mouth 2 (two) times daily. [facility] Vital Signs Vital Name Observation Time Observation Value Comments S ourarmando Systolic blood pressure 2019-03-28 21:04:00 157 mm[Hg] [facility] Diastolic blood pressure 2019-03-28 21:04:00 84 mm[Hg] [facility] Heart rate 2019-03-28 21:03:00 118 /min [facility] Body temperature 2019-03-28 21:03:00 36.5 Reema [facility] Respiratory rate 2019-03-28 21:03:00 17 /min [facility] Body height 2019-03-28 21:03:00 154.9 cm [facility] Body weight 2019-03-28 21:03:00 62.687 kg [facility] BMI 2019-03-28 21:03:00 26.11 kg/m2 [facility] Oxygen saturation in Arterial blood by Pulse oximetry 2019-03-28 21:03:00 98 /min [facility] Procedures Procedure Date / Time Performed Performing Clinician Source NO SHOW OR MISSED APPOINTMENT POLICY ACKNOWLEDGEMENT 2019-03-28 20:56:29 Doctor Unassigned, [place] [facility] Encounters Start Date/Time End Date/Time Encounter Type Admission Type Attending Clinicians Care Facility Care Department Encounter ID Source 2019-03-29 00:00:00 2019-03-29 00:00:00 Telephone Adamaris Roman [facility] [id number] [facility] 2019-03-28 15:57:36 2019-03-28 17:28:26 Urgent Care Edward Cuevas, Attending [facility] [id number] [facility] 2019-03-28 00:00:00 2019-03-28 00:00:00 Orders Only Doctor Unassigned, [place] [facility] [id number] [facility]
--- NOTE | 2023-09-27 12:00 | RAD REPORT ---
EXAM DESCRIPTION: US - UPPER EXTREMITY VENOUS UNILATE - 09/27/2023 11:22 am CLINICAL HISTORY: Right upper extremity swelling COMPARISON: None. FINDINGS: The right internal jugular, subclavian, brachial, axillary, cephalic, basilic, radial and ulnar veins demonstrate phasic signal. The veins are generally compressible. Doppler demonstrates good flow Grayscale, color and spectral analysis performed on all vessels IMPRESSION: No evidence of thrombus involving the right upper extremity
--- NOTE | 2023-09-27 12:12 | ER ---
Nurse's Notes [facility] Name: Jose Luis Bull Age: 67 yrs Sex: Female : 1955 Arrival Date: 09/27/2023 Time: 10:26 Bed 18 Private MD: Diagnosis: Hand Swelling Presentation: 09/26 10:28 Chief complaint: Patient states: Had chemotherapy on Saturday, IV to R hand infiltrated. ll1 Site is still swollen and bruised. No fever or chills. Coronavirus screen: Vaccine status: Patient reports receiving the 2nd dose of the covid vaccine. Client denies travel out of the [place] in the last 14 days. At this time, the client does not indicate any symptoms associated with coronavirus-19. Ebola Screen: Patient denies travel to an Ebola-affected area in the 21 days before illness onset. Initial Sepsis Screen: Does the patient meet any 2 criteria? HR > 90 bpm. No. Patient's initial sepsis screen is negative. Does the patient have a suspected source of infection? No. Patient's initial sepsis screen is negative. Risk Assessment: Do you want to hurt yourself or someone else? Patient reports no desire to harm self or others. Onset of symptoms was September 23, 2023. 10:28 Method Of Arrival: Ambulatory ll1 10:28 Acuity: DARIELA 4 ll1 Triage Assessment: 10:37 General: Appears in no apparent distress. Behavior is calm, cooperative, appropriate ll1 for age. Pain: Complains of pain in right hand Pain currently is 3 out of 10 on a pain scale. Quality of pain is described as aching, pressure. Derm: Bruising that is dark purple, Reports pain. Musculoskeletal: Circulation, motion, and sensation intact. Capillary refill < 3 seconds, Tenderness present in right hand Reports pain in right hand. Injury Description: Bruise. 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 - Social history:: Smoking status: Patient denies any tobacco usage or history of. Screenin:33 [facility] ED Fall Risk Assessment (Adult) History of falling in the last 3 months, mb9 including since admission No falls in past 3 months (0 pts) Confusion or Disorientation No (0 pts) Intoxicated or Sedated No (0 pts) Impaired Gait No (0 pts) Mobility Assist Device Used No (0 pt) Altered Elimination No (0 pt) Score/Fall Risk Level 0 - 2 = Low Risk Oriented to surroundings, Maintained a safe environment, Educated pt \T\ family on fall prevention, incl call for assistance when getting out of bed. Abuse screen: Denies threats or abuse. Nutritional screening: No deficits noted. Tuberculosis screening: No symptoms or risk factors identified. Assessment: 10:37 General: Appears in no apparent distress. Behavior is calm, cooperative. Pain: mb9 Complains of pain in right hand Pain radiates to right arm. Neuro: Jiang Agitation-Sedation Scale (RASS): 0 - Alert and Calm Level of Consciousness is awake, alert, obeys commands, Oriented to person, place, time, situation, Appropriate for age. Cardiovascular: Patient's skin is warm and dry. Cardiovascular: Pulses are all present. Respiratory: Airway is patent Respiratory effort is even, unlabored, Respiratory pattern is regular, symmetrical. Respiratory: Breath sounds are clear bilaterally. GI: No signs and/or symptoms were reported involving the gastrointestinal system. : No signs and/or symptoms were reported regarding the genitourinary system. EENT: No signs and/or symptoms were reported regarding the EENT system. Derm: Bruising that is dark purple, on right hand. Derm: erythema and swelling noted to right hand and upper arm. Skin is cool to touch. Musculoskeletal: Range of motion: intact in all extremities, Swelling present in right hand and right arm. 11:32 Reassessment: No changes from previously documented assessment. Patient and/or family mb9 updated on plan of care and expected duration. Pain level reassessed. Patient is alert, oriented x 3, equal unlabored respirations, skin warm/dry/pink. 12:12 Reassessment: No changes from previously documented assessment. Patient and/or family mb9 updated on plan of care and expected duration. Pain level reassessed. Patient is alert, oriented x 3, equal unlabored respirations, skin warm/dry/pink. Vital Signs: 10:28 BP 159 / 77; Pulse 100; Resp 16; Temp 98; Pulse Ox 100% on R/A; Weight 54.88 kg; Height ll1 5 ft. 1 in. ; Pain 3/10; 12:11 BP 150 / 78; Pulse 84; Resp 18; Pulse Ox 100% on R/A; mb9 10:28 Body Mass Index 22.86 (54.88 kg, 154.94 cm) ll1 10:28 Pain Scale: Adult ll1 ED Course: 10:27 Patient arrived in ED. ec2 10:27 Hawk Vasquez MD is Attending Physician. ec2 10:32 Delia Chacon RN is Primary Nurse. mb9 10:32 Arm band placed on. mb9 10:33 Placed in gown. Bed in low position. Call light in reach. Side rails up X 1. Client mb9 placed on continuous cardiac and pulse oximetry monitoring. NIBP monitoring applied. monitoring tech on. 10:37 Triage completed. ll1 10:38 Provided Education on: pressing call light. mb9 10:38 No provider procedures requiring assistance completed. mb9 10:39 Door closed. Noise minimized. Warm blanket given. mb9 10:51 Patient taken to ultrasound. via wheelchair. mb9 11:23 UPPER EXTREMITY VENOUS UNILATE In Process Unspecified. EDMS 11:32 Patient moved back from ultrasound. mb9 12:17 Patient did not have IV access during this emergency room visit. mb9 Administered Medications: No medications were administered Medication: 10:37 VIS not applicable for this client. mb9 Outcome: 12:11 Discharge ordered by . ec2 12:17 Discharged to home ambulatory, mb9 12:17 Condition: stable 12:17 Discharge instructions given to patient, Instructed on discharge instructions, follow up and referral plans. Demonstrated understanding of instructions, follow-up care, medications, Prescriptions given X 1, 12:18 Patient left the ED. mb9 Signatures: Dispatcher [employer] Jennifer Christianson RN RN ll1 Delia Chacon RN RN mb9 Hawk Vasquez MD MD 2
--- NOTE | 2023-09-27 12:12 | EDPHYS ---
Physician Documentation [facility] Name: Jose Luis Bull Age: 67 yrs Sex: Female : 1955 Arrival Date: 09/27/2023 Time: 10: Bed 18 Private MD: ED Physician Hawk Vasquez HPI: 09/26 10:43 This 67 yrs old Female presents to ER via Ambulatory with complaints of rue ec2 swelling. 10:43 Patient arrives today for evaluation of right upper extremity swelling. Patient reports ec2 that she had an infiltration of her IV 4 days ago in the right hand at the exact location of the swelling, subsequently had noted swelling. Patient complaining of some pain at this area as well. Patient reports some overlying redness as well. States that she was seen by her doctor who wanted her evaluated for a DVT.. 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 - Social history:: Smoking status: Patient denies any tobacco usage or history of. ROS: 10:43 Constitutional: as per hpi ec2 Exam: 10:43 Constitutional: GEN: NAD Head: atraumatic Eyes: EOMI Ears: External ears are ec2 normal. CV: regular rate LUNGS: no respiratory distress ABD: non-distended SKIN: Right wrist with scant amount of erythema, no warmth, no discharge appreciated. Hand swelling noted from the wrist distally MSK: no evidence of trauma NEURO: moves all extremities equally Vital Signs: 10:28 BP 159 / 77; Pulse 100; Resp 16; Temp 98; Pulse Ox 100% on R/A; Weight 54.88 kg; Height ll1 5 ft. 1 in. ; Pain 3/10; 12:11 BP 150 / 78; Pulse 84; Resp 18; Pulse Ox 100% on R/A; mb9 10:28 Body Mass Index 22.86 (54.88 kg, 154.94 cm) ll1 10:28 Pain Scale: Adult ll1 MDM: 10:43 Patient medically screened. ec2 10:43 Data reviewed: vital signs. ED course: Patient arrives today for evaluation of right ec2 upper extremity issues. Examination remarkable for findings as noted above. Will obtain ultrasound. Suspect likely secondary to infiltration, possible cellulitis. Patient is systemically well otherwise in no acute distress.. 12:11 ED course: Ultrasound negative for DVT. Will discharge with antibiotics, return to ec2 home. Return instructions given. . 09/26 11:00 Order name: UPPER EXTREMITY VENOUS UNILATE; Complete Time: 12:11 EDMS Administered Medications: No medications were administered Disposition Summary: 09/27/23 12:11 Discharge Ordered Notes: Location: Home ec2 Condition: Stable ec2 Diagnosis - Hand Swelling ec2 Followup: ec2 - With: Private Physician - When: - Reason: Re-evaluation by your physician Discharge Instructions: - Discharge Summary Sheet ec2 Forms: - Medication Reconciliation Form ec2 - Thank You Letter ec2 - Antibiotic Education ec2 - Prescription Opioid Use ec2 - Patient Portal Instructions ec2 - Leadership Thank You Letter ec2 Prescriptions: - Doxycycline Hyclate 100 mg Oral tablet - take 1 tablet ORAL route every 12 hours for 5 days; 10 tablet; Refills: 0, ec2 Product Selection Permitted Signatures: Dispatcher [employer] Jennifer Christianson RN RN ll1 Delia Chacon RN RN mb9 Hawk Vasquez MD MD ec2 Corrections: (The following items were deleted from the chart) 11:00 10:42 Extremity Venous [email or web address] ordered. EDME EDMS
[2023-09-27 12:39] VITALS: BP 150/78; TEMP 98; O2SAT 100
== END ==
LOC: ER 10:26
DX: R22.31 Localized swelling, mass and lump, right upper limb (principal); Z85.72 Personal history of non-Hodgkin lymphomas
CPT/HCPCS: 93971; 99284

== ENCOUNTER 2023-11-01 14:39 | Emergency (ER) | payer OTHER ==
--- OUTSIDE RECORDS SUMMARY | 2023-11-01 14:41 | XMS REPORT | Continuity of Care Document ---
Author Name Unknown Address [address] [place] [address] thconnect Address 1200 [facility] 1 495 [place] [address] Care Team Providers Care Candy Spreader Helper Name Role Phone Adamaris Nance Attending Clinician [phone] Edward Cuevas MD Attending Clinician [phone] Unknown, Attending Attending Clinician Unavailab le Doctor Unassigned, [place] Attending Clinician U navailable Payers Payer Name Policy Type Policy Number Effective Date Expirati on Date Source Problems Condition Name Condition Details Condition Category Status Onset Date Resolution Date Last Treatment Date Treating Clinician Comments Source No known active problems No known active problems Disease [facility] Social History Social Habit Start Date Stop Date Quantity Comments Source Alcohol intake [facility] Sex Assigned At [facility] Smoking Status Start Date Stop Date Source Never smoker [facility] Medications Ordered Medication Name Filled Medication Name Start Date Stop Date Current Medication? Ordering Clinician Indication Dosage Frequency Signature (SIG) Comments Components Source acetaminoph en-codeine 300-30 mg tablet 03-28 00:00: 00 Yes [id number] 1/2 - 1 tab Every 4hrs as needed for pain or cough requiring narcotic [facility] azithromyci n 250 mg tablet 10-25 00:00: 00 Yes [id number] 250mg Take 1 tablet by mouth SEE-INSTRU CTIONS. Take 500 mg day 1, then 250 mg days 2 to 5. [facility] dextrometho rphan-guaif enesin 30-600 mg per tablet 10-25 00:00: 00 Yes [id number] 1{tbl} Take 1 tablet by mouth 2 (two) times daily. [facility] Vital Signs Vital Name Observation Time Observation Value Comments Hubert aden Systolic blood pressure 2019-03-28 21:04:00 157 mm[Hg] [facility] Diastolic blood pressure 2019-03-28 21:04:00 84 mm[Hg] [facility] Heart rate 2019-03-28 21:03:00 118 /min [facility] Body temperature 2019-03-28 21:03:00 36.5 Reema [facility] Respiratory rate 2019-03-28 21:03:00 17 /min [facility] Body height 2019-03-28 21:03:00 154.9 cm [facility] Body weight 2019-03-28 21:03:00 62.687 kg [facility] BMI 2019-03-28 21:03:00 26.11 kg/m2 [facility] Oxygen saturation in Arterial blood by Pulse oximetry 2019-03-28 21:03:00 98 /min [facility] Procedures Procedure Date / Time Performed Performing Clinician Source NO SHOW OR MISSED APPOINTMENT POLICY ACKNOWLEDGEMENT 2019-03-28 20:56:29 Doctor Unassigned, [place] [facility] Encounters Start Date/Time End Date/Time Encounter Type Admission Type Attending Clinicians Care Facility Care Department Encounter ID Source 2019-03-29 00:00:00 2019-03-29 00:00:00 Telephone Adamaris Roman [facility] 1..114 [id number] [facility] 2019-03-28 15:57:36 2019-03-28 17:28:26 Urgent Care Edward Cuevas Unknown, Attending [facility] 1..114 [id number] [facility] 2019-03-28 00:00:00 2019-03-28 00:00:00 Orders Only Doctor Unassigned, [place] [facility] [id number] [facility]
--- NOTE | 2023-11-01 15:24 | ER ---
Nurse's Notes [facility] Name: Jose Luis Bull Age: 67 yrs Sex: Female : 1955 Arrival Date: 11/01/2023 Time: 14:39 Bed 14 Private MD: Diagnosis: Cellulitis to right wrist Presentation: 10/31 14:55 Chief complaint: Patient states: Chemo medication infiltrated into R hand/wrist area on ll1 September 22. Painful, red, swollen since. No fevers. Coronavirus screen: Client denies travel out of the [place] in the last 14 days. At this time, the client does not indicate any symptoms associated with coronavirus-19. Ebola Screen: Patient denies travel to an Ebola-affected area in the 21 days before illness onset. Initial Sepsis Screen: Does the patient meet any 2 criteria? No. Patient's initial sepsis screen is negative. Does the patient have a suspected source of infection? No. Patient's initial sepsis screen is negative. Risk Assessment: Do you want to hurt yourself or someone else? Patient reports no desire to harm self or others. Onset of symptoms was September 23, 2023. 14:55 Method Of Arrival: Ambulatory ll1 14:55 Acuity: DARIELA 3 ll1 Historical: - Allergies: 14:55 No Known Allergies; ll1 - PMHx: 14:55 chemo drugs; lymphomia; ll1 - PSHx: 14:55 carpal tunnel; ll1 - Immunization history:: Adult Immunizations up to date. - Infectious Disease History:: Denies. - Social history:: Smoking status: Patient denies any tobacco usage or history of. Screenin:17 [facility] ED Fall Risk Assessment (Adult) History of falling in the last 3 months, mb9 including since admission No falls in past 3 months (0 pts) Confusion or Disorientation No (0 pts) Intoxicated or Sedated No (0 pts) Impaired Gait No (0 pts) Mobility Assist Device Used No (0 pt) Altered Elimination No (0 pt) Score/Fall Risk Level 0 - 2 = Low Risk Oriented to surroundings, Maintained a safe environment, Educated pt \T\ family on fall prevention, incl call for assistance when getting out of bed. Abuse screen: Denies threats or abuse. Nutritional screening: No deficits noted. Tuberculosis screening: No symptoms or risk factors identified. Assessment: 15:17 General: Appears in no apparent distress. Behavior is calm, cooperative. Pain: mb9 Complains of pain in right arm. Neuro: Jiang Agitation-Sedation Scale (RASS): 0 - Alert and Calm Level of Consciousness is awake, alert, obeys commands, Oriented to person, place, time, situation, Appropriate for age. Cardiovascular: Patient's skin is warm and dry. Respiratory: Airway is patent Respiratory effort is even, unlabored, Respiratory pattern is regular, symmetrical. GI: No signs and/or symptoms were reported involving the gastrointestinal system. : No signs and/or symptoms were reported regarding the genitourinary system. EENT: No signs and/or symptoms were reported regarding the EENT system. Derm: Skin is normal. Musculoskeletal: Swelling present in right hand and right arm. Vital Signs: 14:55 BP 167 / 74; Pulse 85; Resp 16; Temp 98.4; Pulse Ox 100% ; Weight 54.43 kg; Height 5 ll1 ft. 1 in. ; Pain 8/10; 15:21 BP 157 / 94; Pulse 78; Resp 16; Pulse Ox 100% on R/A; mb9 14:55 Body Mass Index 22.67 (54.43 kg, 154.94 cm) ll1 14:55 Pain Scale: Adult ll1 ED Course: 14:41 Patient arrived in ED. mr 14:41 Cr Messina MD is Attending Physician. rt 14:57 Triage completed. ll1 14:57 Arm band placed on Patient placed in an exam room, on a stretcher. ll1 14:57 Provided Education on: press call light if needing anything. mb9 15:01 Delia Chacon, W[place]ATT is Primary Nurse. mb9 15:18 Placed in gown. Bed in low position. Call light in reach. Side rails up X 1. Client mb9 placed on continuous cardiac and pulse oximetry monitoring. NIBP monitoring applied. media monitor on. 15:21 No provider procedures requiring assistance completed. Patient did not have IV access mb9 during this emergency room visit. Administered Medications: No medications were administered Medication: 15:18 VIS not applicable for this client. mb9 Outcome: 15:23 Discharge ordered by . rt 15:32 Discharged to home ambulatory, mb9 15:32 Condition: stable 15:32 Discharge instructions given to patient, Instructed on discharge instructions, follow up and referral plans. Demonstrated understanding of instructions, follow-up care, medications, Prescriptions given X 3, 15:32 Patient left the ED. mb9 Signatures: Delia Al, Grzegorz Lantigua mr Jennifer Grant RN RN ll1 Delia Chacon RN RN mb9 Cr Messina MD MD rt
--- NOTE | 2023-11-01 15:24 | EDPHYS ---
Physician Documentation [facility] Name: Jose Luis Bull Age: 67 yrs Sex: Female : 1955 Arrival Date: 11/01/2023 Time: 14:39 Bed 14 Private MD: ED Physician Cr Messina HPI: 10/31 15:59 This 67 yrs old Female presents to ER via Ambulatory with complaints of Wrist Injury. rt 15:59 Patient presents to the ED with redness to the right wrist. Patient states that the rt lower month ago, around chemotherapy infiltrated. No active cancers currently. Patient did complete course of antibiotics, states it improved, became more red over the past week. Denies fever, chills, acute complaints, symptoms are moderate in severity, no other aggravating alleviating factors.. Historical: - Allergies: 14:55 No Known Allergies; ll1 - PMHx: 14:55 chemo drugs; lymphomia; ll1 - PSHx: 14:55 carpal tunnel; ll1 - Immunization history:: Adult Immunizations up to date. - Infectious Disease History:: Denies. - Social history:: Smoking status: Patient denies any tobacco usage or history of. ROS: 15:59 Constitutional: Negative for fever, chills, and weight loss, Cardiovascular: Negative rt for chest pain, palpitations, and edema, Respiratory: Negative for shortness of breath, cough, wheezing, and pleuritic chest pain, Abdomen/GI: Negative for abdominal pain, nausea, vomiting, diarrhea, and constipation, Neuro: Negative for headache, weakness, numbness, tingling, and seizure, 15:59 MS/extremity: Positive for Redness, swelling, Exam: 15:59 Constitutional: This is a well developed, well nourished patient who is awake, alert, rt and in no acute distress. Head/Face: Normocephalic, atraumatic. Chest/axilla: Normal chest wall appearance and motion. Nontender with no deformity. No lesions are appreciated. Cardiovascular: Regular rate and rhythm with a normal S1 and S2. No gallops, murmurs, or rubs. Normal PMI, no JVD. No pulse deficits. Respiratory: Lungs have equal breath sounds bilaterally, clear to auscultation and percussion. No rales, rhonchi or wheezes noted. No increased work of breathing, no retractions or nasal flaring. Abdomen/GI: Soft, non-tender, with normal bowel sounds. No distension or tympany. No guarding or rebound. No evidence of tenderness throughout. 15:59 Musculoskeletal/extremity: Redness with minimal swelling to the dorsum of the right wrist, no purulence noted. There is full range of motion of the wrist, pulses, motor, sensation are intact. Vital Signs: 14:55 BP 167 / 74; Pulse 85; Resp 16; Temp 98.4; Pulse Ox 100% ; Weight 54.43 kg; Height 5 ll1 ft. 1 in. ; Pain 8/10; 15:21 BP 157 / 94; Pulse 78; Resp 16; Pulse Ox 100% on R/A; mb9 14:55 Body Mass Index 22.67 (54.43 kg, 154.94 cm) ll1 14:55 Pain Scale: Adult ll1 MDM: 15:05 Patient medically screened. rt 15:59 Differential diagnosis: Cellulitis, abscess. Data reviewed: vital signs, nurses notes. rt Test considered but Not performed: Other Details Patient has stable vital signs, no constitutional symptoms, do not suspect systemic infection, labs, blood cultures are not indicated. Counseling: I had a detailed discussion with the patient and/or guardian regarding the historical points, exam findings, and any diagnostic results supporting the discharge/admit diagnosis, the need for outpatient follow up, to return to the emergency department if symptoms worsen or persist or if there are any questions or concerns that arise at home. ED course: Bedside ultrasound performed, there is no drainable abscess.. Administered Medications: No medications were administered Disposition Summary: 11/01/23 15:23 Discharge Ordered Notes: Location: Home rt Problem: new rt Symptoms: are unchanged rt Condition: Stable rt Diagnosis - Cellulitis to right wrist rt Followup: rt - With: Private Physician - When: 5 - 6 days - Reason: Followup: rt - With: Emergency Department - When: As needed - Reason: Worsening of condition Discharge Instructions: - Discharge Summary Sheet rt - Cellulitis, Adult rt - IV Infiltration rt Forms: - Medication Reconciliation Form rt - Thank You Letter rt - Antibiotic Education rt - Prescription Opioid Use rt - Patient Portal Instructions rt - Leadership Thank You Letter rt Prescriptions: - acetaminophen-codeine 300-30 mg Oral tablet - take 1 tablet ORAL route every 6 hours as needed for pain; 15 tablet; Refills: rt 0, Product Selection Permitted - Cephalexin 500 mg Oral Capsule - take 1 capsule ORAL route every 6 hours for 10 days; 40 capsule; Refills: 0, rt Product Selection Permitted - Clindamycin HCl 300 mg Oral Capsule - take 1 capsule ORAL route every 6 hours for 10 days; 40 capsule; Refills: 0, rt Product Selection Permitted Signatures: Jennifer Grant RN RN ll1 Cr Messina MD MD rt
[2023-11-01 16:11] VITALS: BP 157/94; TEMP 98.4; O2SAT 100
== END 2023-11-01 15:32 | disposition home or self-care (01) ==
LOC: ER 14:39
DX: L03.113 Cellulitis of right upper limb (principal)
CPT/HCPCS: 99284